=== PATIENT | female | born 1970 | race Two or more races ===

== ENCOUNTER 2024-12-30 11:35 | Day surgery (SDC) | payer BC ==
[2024-12-30 11:56] LABS: PREGNANCY TEST URINE QUAL NEGATIVE (NEGATIVE)
== END 2024-12-30 15:05 | disposition home or self-care (01) ==
LOC: DS 11:35
PROVIDERS: ATTEND Internal Medicine Gastroenterology
DX: Z12.11 Encounter for screening for malignant neoplasm of colon (principal); K21.9 Gastro-esophageal reflux disease without esophagitis; D12.3 Benign neoplasm of transverse colon; K29.70 Gastritis, unspecified, without bleeding; K64.8 Other hemorrhoids; I10 Essential (primary) hypertension; E11.9 Type 2 diabetes mellitus without complications; Z79.899 Other long term (current) drug therapy; Z98.890 Other specified postprocedural states
CPT/HCPCS: 43239; 45385; 84703; 88305; 88313; 88342; J2704; J3490; J7030